=== PATIENT | female | born 2000 | race Caucasian/White ===

== ENCOUNTER 2023-04-29 22:05 | Emergency (ER) | payer SELFPAY ==
[2023-04-29 23:19] LABS: APPEARANCE,URINE CLEAR; BILIRUBIN,URINE NEGATIVE (NEGATIVE); COLOR,URINE YELLOW; GLUCOSE,URINE NEGATIVE (NEGATIVE); KETONES,URINE NEGATIVE (NEGATIVE); LEUKOCYTE ESTERASE,URINE NEGATIVE (NEGATIVE); NITRITE,URINE NEGATIVE (NEGATIVE); OCCULT BLOOD,URINE NEGATIVE (NEGATIVE); PH,URINE 5.5 (5.0-8.0); PROTEIN,URINE NEGATIVE (NEGATIVE); UROBILINOGEN,URINE 0.2 EU/dL (<2.0)
[2023-04-29] MEDS ORDERED: Ondansetron 4 MG/2 ML SDV IVPUSH ONE (23:38)
[2023-04-29] MEDS ORDERED: Morphine 4 MG/ML Syringe IVPUSH ONE (23:38)
== END 2023-04-30 00:40 | disposition home or self-care (01) ==
LOC: MW.ED 22:05
DX: N75.1 Abscess of Bartholin's gland (principal)
CPT/HCPCS: 56420; 81003; 81025; 96374; 96375; 99283; J2270; J2405; 10060; 99284

== ENCOUNTER 2024-05-19 20:10 | Inpatient (IN) | payer OTHER ==
[2024-05-19] MEDS ORDERED: Sodium Chloride 0.9% 20 ML SDV IV PRN (20:15)
[2024-05-19] MEDS ORDERED: Misoprostol 200 MCG Tab PO PRN (20:15)
[2024-05-19] MEDS ORDERED: Sodium Chloride 0.9% 10 ML Syringe FLUSH PRN (20:15)
[2024-05-19] MEDS ORDERED: Methylergonovine 0.2 MG/1 ML Amp IM PRN (20:15)
[2024-05-19] MEDS ORDERED: Carboprost Tromethamine 250 MCG/1 mL Vial IM PRN (20:15)
[2024-05-19] MEDS ORDERED: Water For Irrigation,Sterile 1,000 ML Container IRR PRN (20:15)
[2024-05-19] MEDS ORDERED: Sodium Chloride 0.9% 2.5 ML Syringe FLUSH PRN (20:15)
[2024-05-19] MEDS ORDERED: Lactated Ringers 1,000 ML IV SCH (20:15)
[2024-05-19] MEDS ORDERED: Lidocaine 1% 50 ML MDV INJECT PRN (20:15)
[2024-05-19 20:38] LABS: HEMATOCRIT 39.6 % (37.0-47.0); HEMOGLOBIN 14.5 g/dL (12.0-16.0); MEAN CORPUSCULAR HEMOGLOBIN 35.2 pg (28.0-32.0); MEAN CORPUSCULAR HGB CONC 36.6 g/dL (32.0-36.0); MEAN CORPUSCULAR VOLUME 96.1 fL (83.0-99.0); MEAN PLATELET VOLUME 12.2 fL (9.4-12.3); PLATELET COUNT,PLT 138 K/uL (150-400); RED BLOOD CELL COUNT 4.12 M/uL (4.10-5.30)
[2024-05-19] MEDS: Oxytocin/0.9 % Sodium Chloride 30 UNIT/500 ML BAG IV SCH (21:07)
[2024-05-20] MEDS: Benzocaine/Menthol 20%-0.5% Spray 78 GM Cannister ONE (00:58)
[2024-05-20] MEDS: Witch Hazel Medicated Pads 40/Jar TOP ONE (00:58)
[2024-05-20] MEDS ORDERED: Benzocaine/Menthol 20%-0.5% Spray 78 GM Cannister TOP PRN (01:23)
[2024-05-20] MEDS ORDERED: Lanolin 100% Cream 7 GM Tube TOP PRN (01:23)
[2024-05-20] MEDS ORDERED: Witch Hazel Medicated Pads 40/Jar TOP PRN (01:23)
[2024-05-20] MEDS: Lactated Ringers 1,000 ML IV ONE (02:00)
[2024-05-20] MEDS: Tranexamic Acid IN NACL,ISO-OS 1,000 MG in Premix Bag 1 BAG IV PRN (02:21)
[2024-05-20 02:44] LABS: HEMATOCRIT 31.2 % (37.0-47.0); HEMOGLOBIN 11.1 g/dL (12.0-16.0); MEAN CORPUSCULAR HGB CONC 35.6 g/dL (32.0-36.0); MEAN CORPUSCULAR VOLUME 98.4 fL (83.0-99.0); MEAN PLATELET VOLUME 11.9 fL (9.4-12.3); PLATELET COUNT,PLT 151 K/uL (150-400); RED BLOOD CELL COUNT 3.17 M/uL (4.10-5.30); WHITE BLOOD CELL COUNT,WBC 16.19 K/uL (3.9-11.3)
[2024-05-20 03:11] LABS: INR 0.94 (0.86-1.11); PTT,PARTIAL THROMBOPLSTIN TIME 27.8 SEC (23.9-30.7)
[2024-05-20] MEDS: Ibuprofen 800 MG Tab PO PRN (03:44)
[2024-05-20] MEDS: Acetaminophen 500 MG Tab PO PRN (09:24)
[2024-05-20] MEDS: Docusate Sodium 100 MG Cap PO PRN (22:37)
[2024-05-21 06:26] LABS: HEMATOCRIT 27.1 % (37.0-47.0); HEMOGLOBIN 9.5 g/dL (12.0-16.0)
== END 2024-05-21 14:25 | disposition home or self-care (01) | DRG 806 ==
LOC: MW.OBCHECK 20:10 → MW.OB 20:10 → MW.OBCHECK 20:14 → MW.OB 20:15 → OBSVTOIN 05-20 01:23 → MW.OB 05-20 03:35
PROVIDERS: ADMIT Obstetrics & Gynecology Obstetrics; ATTEND Obstetrics & Gynecology Obstetrics
PROC: 10E0XZZ Delivery of Products of Conception, External Approach (ICD-10-PCS; principal; 2024-05-20)
DX: O36.5930 Maternal care for other known or suspected poor fetal growth, third trimester, not applicable or unspecified (principal); D62 Acute posthemorrhagic anemia; Z37.0 Single live birth; O72.1 Other immediate postpartum hemorrhage; Z3A.40 40 weeks gestation of pregnancy; O90.81 Anemia of the puerperium; O48.0 Post-term pregnancy
CPT/HCPCS: 36415; 59025; 59409; 59414; 85014; 85018; 85027; 85384; 85610; 85730; 86592; 86850; 86900; 86901; A9270-GY; J2590; J3490; J7120